=== PATIENT | female | born 1950 | race Caucasian/White ===

== ENCOUNTER 2018-04-29 19:46 | Emergency (ER) | payer OTHER ==
[~2018-04-29] VITALS: Ht 162.6 cm; Wt 86.2 kg
[2018-04-29] MEDS ORDERED: TRAMADOL HCL 50 MG TAB PO ONE (20:00)
--- NOTE | 2018-04-29 21:12 | Diagnostic Imaging Report ---
KNEE RIGHT THREE VIEWS HISTORY: Knee pain, twisted knee. COMPARISON: None available. FINDINGS: Bones: No acute displaced fracture. Osseous alignment is within normal limits. Joints: The joint spaces are well-maintained. Soft tissues: Moderate suprapatellar joint effusion. IMPRESSION: No acute bony abnormality. Moderate suprapatellar joint effusion. Signed by: DR. Giuliano Cain MD on 04/29/2018 9:09 PM
== END 2018-04-29 22:00 | disposition home or self-care (01) ==
LOC: ER 19:46
DX: M25.561 Pain in right knee (principal); S83.91XA Sprain of unspecified site of right knee, initial encounter; X50.1XXA Overexertion from prolonged static or awkward postures, initial encounter; Y93.01 Activity, walking, marching and hiking; Y92.008 Other place in unspecified non-institutional (private) residence as the place of occurrence of the external cause; I10 Essential (primary) hypertension
CPT/HCPCS: 99283